=== PATIENT | male | born 1965 | race Caucasian/White ===

== ENCOUNTER 2017-09-21 12:53 | Emergency (ER) | payer OTHER ==
[~2017-09-21] VITALS: Ht 167.6 cm; Wt 68.0 kg
[2017-09-21 13:00] VITALS: Ht 167.6 cm; Wt 68.0 kg
[2017-09-21 17:09] VITALS: BP 139/92
== END 2017-09-21 17:40 | disposition home or self-care (01) ==
LOC: ED 12:53
DX: C34.90 Malignant neoplasm of unspecified part of unspecified bronchus or lung (principal); C79.51 Secondary malignant neoplasm of bone; C79.11 Secondary malignant neoplasm of bladder; M25.551 Pain in right hip
CPT/HCPCS: J1885

== ENCOUNTER 2017-10-02 08:47 | Observation (INO) | payer OTHER ==
[~2017-10-02] VITALS: Ht 167.6 cm; Wt 65.5 kg
[2017-10-02 09:30] LABS: BASOPHIL % 0.3 % (0-2)
[2017-10-02 09:34] LABS: PLATELET COUNT 419 x10^3mcL (130-400); RED CELL DISTRIBUTION WIDTH 16.2 % (11.5-14.5)
[2017-10-02 10:44] LABS: CHLORIDE SERUM 95 mmol/L (98-107); POTASSIUM SERUM 3.6 mmol/L (3.5-5.1); SODIUM SERUM 130 mmol/L (136-145)
[2017-10-02 10:45] LABS: ALBUMIN 2.9 g/dL (3.4-5.0); CALCIUM 8.8 mg/dL (8.5-10.1); CARBON DIOXIDE 24 mmol/L (21-32); CREATININE SERUM 1.2 mg/dL (0.7-1.3); GFR1 > 60 mL/min; GLUCOSE SERUM 140 mg/dL (74-106); TOTAL PROTEIN, SERUM 8.2 g/dL (6.4-8.2)
[2017-10-02 10:46] LABS: ALKALINE PHOSPHATASE 728 U/L (46-116); ALT/SGPT 86 U/L (16-63); AMYLASE 94 U/L (25-115); AST/SGOT 50 U/L (15-37); BILIRUBIN TOTAL 4.8 mg/dL (0.20-1.00); LIPASE 330 IU/L (73-393)
[2017-10-02] MEDS ORDERED: GABAPENTIN600 M1 PO (12:01)
[2017-10-02] MEDS ORDERED: OMEPRAZOLE40 M1 PO (12:01)
[2017-10-02] MEDS ORDERED: NOR5 PO (12:01)
[2017-10-02] MEDS ORDERED: ATENOLOL50 MG PO (12:02)
[2017-10-02 13:11] LABS: UA SPECIFIC GRAVITY 1.025 (1.005-1.035); microscopic required? YES; urine erythrocyte 3+ (NEGATIVE)
[2017-10-02 13:26] VITALS: BP 147/70
[2017-10-02 13:46] LABS: AMPHETAMINE QUAL UR NONE DETECTED (NEG <=1000)
[2017-10-02 14:37] LABS: MAGNESIUM 3.2 mg/dL (1.8-2.4); PHOSPHOROUS 4.3 mg/dL (2.5-4.9)
[2017-10-02 14:44] LABS: CHOLESTEROL/HDL RATIO 17.6
[2017-10-02 15:03] LABS: FREE T4 1.07 ng/dL (0.76-1.46); FREE THYROXINE INDEX 2.5 ug/dL (1.4-4.5); T4(THYROXINE) 7.7 ug/dL (4.7-13.3)
[2017-10-02 15:04] LABS: T3 TOTAL 0.69 ng/mL
[2017-10-02 20:58] VITALS: BP 140/75
[2017-10-03 06:46] VITALS: BP 149/96
[2017-10-03 07:16] LABS: CALCIUM 8.3 mg/dL (8.5-10.1); CARBON DIOXIDE 22.3 mmol/L (21-32); CHLORIDE SERUM 105 mmol/L (98-107); CREATININE SERUM 0.9 mg/dL (0.7-1.3); GFR1 > 60 mL/min; GLUCOSE SERUM 100 mg/dL (74-106); MAGNESIUM 2.9 mg/dL (1.8-2.4); PHOSPHOROUS 2.7 mg/dL (2.5-4.9); POTASSIUM SERUM 3.5 mmol/L (3.5-5.1); SODIUM SERUM 139 mmol/L (136-145)
[2017-10-03 07:34] LABS: BASOPHIL % 0.4 % (0-2); PLATELET COUNT 322 x10^3mcL (130-400); RED CELL DISTRIBUTION WIDTH 15.9 % (11.5-14.5)
[2017-10-03 09:10] VITALS: BP 139/81
[2017-10-03] MEDS ORDERED: MOR4I IV (11:50)
[2017-10-03] MEDS ORDERED: AMB5 PO (11:51)
[2017-10-03] MEDS ORDERED: COM5 PO (11:51)
[2017-10-03] MEDS ORDERED: COL100 PO (11:51)
[2017-10-03] MEDS ORDERED: TYL325 PO (11:51)
[2017-10-03 12:36] VITALS: BP 163/95
[2017-10-03 12:52] VITALS: BP 139/81
== END 2017-10-03 15:34 | disposition hospice, home (50) | DRG 374 ==
LOC: ED 08:47 → DU 12:42
PROVIDERS: Family Medicine; Specialist
DX: C78.89 Secondary malignant neoplasm of other digestive organs (principal); N17.0 Acute kidney failure with tubular necrosis; C34.90 Malignant neoplasm of unspecified part of unspecified bronchus or lung; C79.51 Secondary malignant neoplasm of bone; C79.11 Secondary malignant neoplasm of bladder; E87.1 Hypo-osmolality and hyponatremia; E44.0 Moderate protein-calorie malnutrition; C78.5 Secondary malignant neoplasm of large intestine and rectum; C78.6 Secondary malignant neoplasm of retroperitoneum and peritoneum; C78.7 Secondary malignant neoplasm of liver and intrahepatic bile duct; E86.0 Dehydration; R62.7 Adult failure to thrive; E83.41 Hypermagnesemia; D63.0 Anemia in neoplastic disease; I10 Essential (primary) hypertension; E78.5 Hyperlipidemia, unspecified; Z66 Do not resuscitate; Z92.21 Personal history of antineoplastic chemotherapy; Z68.23 Body mass index [BMI] 23.0-23.9, adult
CPT/HCPCS: 83880; 84439; G0378; J0780; J2270; J2405; J3010; J3490; J7030; Q0092; Q0164; Q9967